=== PATIENT | male | born 1995 | race Caucasian/White ===

== ENCOUNTER 2018-02-12 19:44 | Emergency (ER) | payer MEDICAID, OTHER ==
[2018-02-12 20:37] VITALS: BP 122/76
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
== END 2018-02-12 23:30 | disposition home or self-care (01) ==
LOC: ED 19:44
DX: S16.1XXA Strain of muscle, fascia and tendon at neck level, initial encounter (principal); M54.89 Other dorsalgia; Z87.891 Personal history of nicotine dependence; V44.5XXA Car driver injured in collision with heavy transport vehicle or bus in traffic accident, initial encounter; Y93.89 Activity, other specified; Y99.8 Other external cause status; Y92.410 Unspecified street and highway as the place of occurrence of the external cause
CPT/HCPCS: 72040; 72070